=== PATIENT | male | born 1960 | race Caucasian/White ===

== ENCOUNTER 2021-09-24 14:17 | Emergency (ER) | payer OTHER ==
[2021-09-24 16:39] LABS: HEMOGLOBIN 14.9 gm/dl (14.0-17.5); RED BLOOD COUNT 5.1 M/UL (4.20-5.50); WHITE BLOOD COUNT 15.4 K/UL (4.5-11.0)
== END 2021-09-24 20:05 | disposition home or self-care (01) ==
LOC: ER1 14:17
PROVIDERS: Physician Assistant
DX: R19.7 Diarrhea, unspecified (principal); I12.9 Hypertensive chronic kidney disease with stage 1 through stage 4 chronic kidney disease, or unspecified chronic kidney disease; N18.9 Chronic kidney disease, unspecified; Z86.73 Personal history of transient ischemic attack (TIA), and cerebral infarction without residual deficits; Z87.891 Personal history of nicotine dependence; Z88.8 Allergy status to other drugs, medicaments and biological substances; Z79.82 Long term (current) use of aspirin
CPT/HCPCS: 80053; 81001; 85025; 99284

== ENCOUNTER → 2022-02-03 | Outpatient (CLI) | payer OTHER | LOC: HEART 5 14:41 | DX: R06.02 Shortness of breath (principal) | CPT/HCPCS: 94010 ==